=== PATIENT | female | born 1990 | race Caucasian/White ===

== ENCOUNTER → 2025-06-21 12:04 | Outpatient (BNVA) | payer OTHER, SELFPAY | PROVIDERS: Visit Provider Physician Assistant Medical | DX: S62.645A Nondisplaced fracture of proximal phalanx of left ring finger, initial encounter for closed fracture (principal); W01.0XXA Fall on same level from slipping, tripping and stumbling without subsequent striking against object, initial encounter | CPT/HCPCS: 73130; 99203 ==

== ENCOUNTER 2025-06-23 08:32 | Outpatient (REF) | payer OTHER, SELFPAY ==
--- NOTE | ~2025-06-23 | XR_ITS ---
EXAMINATION: XR HAND 3 OR MORE VIEWS LEFT HISTORY: M79.642 - Pain in left hand COMPARISON: There is an is made with the prior examination dated 06/21/2025. FINDINGS: Four views of the left hand are submitted. Osseous mineralization is normal. Again seen is a nondisplaced transverse fracture of the base of the 4th proximal phalanx. The joint spaces are preserved. The soft tissues are unremarkable. XR/XR hand LT min 3V IMPRESSION: Nondisplaced fracture of the base of the 4th proximal phalanx without change. Electronically signed by: Con Horn MD 06/23/2025 10:42 AM ERASMO
--- OUTSIDE RECORDS SUMMARY | 2025-06-26 08:49 | XMS_ITS | Clinical Summary ---
Author Organization [facility] Address [address] [place] [id number] Phone Care Team Providers Care Bus Driver Supervisor Name Role Phone Pcp, Not Required Primary [...] on file Insurance CIGNA PPO [facility] [facility] [place] [id number] CIGNA PPO CIGNA PPO CIGNA PPO CIGNA PPO Advance Directives For more information, please contact: [phone] (9AM - 5PM D[place]a/[facility], Thursday-Thursday) * Full Code (Latest Code Status on File) Date Activated Date Inactivated Comments 05/31/2023 4:22 PM Question Answer Comments Code Status Confirmed With: Other (specify below ) Code Discussion Comments: chart review Care Teams Bus Driver Supervisor Relationship Specialty Start Date End Date Pcp, Not Required PCP - General 10/23/16 Additional Source Comments The information contained in this document represents components of the legal health record. It is not the complete legal health record.[facility]
== END 2025-06-23 08:33 | disposition home or self-care (01) ==
LOC: HO.HOSX 08:32
DX: S62.615A Displaced fracture of proximal phalanx of left ring finger, initial encounter for closed fracture (principal); W01.0XXA Fall on same level from slipping, tripping and stumbling without subsequent striking against object, initial encounter; Y92.9 Unspecified place or not applicable; Y93.9 Activity, unspecified; Y99.9 Unspecified external cause status
CPT/HCPCS: 26720; 73130; 99202

== ENCOUNTER 2025-06-23 10:27 | Outpatient (AMB) | payer OTHER, SELFPAY ==
--- NOTE | 2025-06-23 10:57 | A.OFFVIS_ITS ---
Intake Visit Reasons: Fx- LT 4th proximal phalanx fracture DOI;06/21/25 Intake Note: Di is a 34 year old - hand dominant female, new patient, who presents today for a Fracture Care visit status post Left 4th Proximal Phalanx Fracture, DOI: 06/21/25 While at work she tripped and fell, while falling she tried catching herself but instead her Left hand hit the door/door know. Currently she reports very mild pain, some numbness,significant swelling and some bruising. The swelling is seen all along the left 4th digit as well as volar& dorsal aspects of hand. She is taking Ibuprofen PRN. After her injury she was seen at the work connection where she was placed in a splint. She has been at work with no clear restrictions from the . She works as a paraprofessional. Allergies No Known Allergies Allergy (Verified 06/23/25 11:06) HPI HPI Fx- LT 4th proximal phalanx fracture DOI;06/21/25: Details: Di is a 34 year old - hand dominant female, new patient, who presents today for a Fracture Care visit status post Left 4th Proximal Phalanx Fracture, DOI: 06/21/25 While at work she tripped and fell, while falling she tried catching herself but instead her Left hand hit the door/door know. Currently she reports very mild pain, some numbness,significant swelling and some bruising. The swelling is seen all along the left 4th digit as well as volar& dorsal aspects of hand. She is taking Ibuprofen PRN. After her injury she was seen at the work connection where she was placed in a splint. She has been at work with no clear restrictions from the . She works as a paraprofessional. [facility]LY [facility], [facility] Social History (Updated 06/23/25 @ 11:06 by Macy Holman CMA) Current occupational status: employed Current occupation: Paraprofessional Review of Systems Const All systems reviewed & are unremarkable except as noted in HPI and below Physical Exam Extrem Other: Patient is alert, oriented, and in no acute distress. Neuro: Normal sensation of the tips of all digits of the left hand at this time Vascular: Cap refill brisk Pain: Tenderness to palpation about proximal phalanx of left ring finger Skin: No lacerations or abrasions. General: There is noted to be a slight rotational deformity noted of the left ring finger No ecchymosis, erythema, or evidence of infection. Psych: Appears grossly normal Affect normal Attitude cooperative Office Procedures Casting/Splints 05032-Hdwwrzd Splint Application Procedure code (CPT) selection complete Results Reviewed Results Reviewed: X-rays obtained in the office today and independently reviewed by me, Carlos Hooks PA-C, demonstrate displaced left 4th proximal phalanx base fracture. Assessment & Plan Assessment & Plan (1) Displaced fracture of proximal phalanx of left ring finger: Code(s): S62.615A - Displaced fracture of proximal phalanx of left ring finger, initial encounter for closed fracture Category: Medical Plan 1. Left ring finger proximal phalanx fracture Date of injury 06/21/2025 I educated the patient about the condition. I discussed both operative and nonoperative treatment options. The patient would like to proceed with surgery. The risks and benefits of operative treatment were discussed with the patient and the patient wishes to proceed with surgery. These risks include, but are not limited to, risk of damage to blood vessels, nerves, tendons, infection, recurrence, incomplete relief of preoperative symptoms, persistent pain, possible need for further surgery, and the risks associated with regional blocks and/or anesthesia. Plan is to take the patient to the operating room at some point in the next few weeks for the following procedures: 1. Left ring finger proximal phalanx CRPP versus ORIF under general All of the preoperative paperwork including the consent was discussed today. All of the patient's questions were answered in the clinic today. The patient understands that they will be in contact with our parts puller to discuss scheduling their procedure. Patient denies diabetes, blood thinners, asthma, heart issues, lung issues, kidney issues, or current smoking. Patient is placed in a ulnar gutter splint today Patient educated on proper splint care and precautions Orders: Orders XR hand LT min 3V Today M79.642 - Pain in left hand Coding Level of Care Code New Pt Level 4 (45337) Diagnoses Displaced fracture of proximal phalanx of left ring finger S62.615A CPT Codes Splint - CPT: 94282-Cxglxvb Splint Application ([id number])
--- OUTSIDE RECORDS SUMMARY | 2025-06-23 11:59 | XMS_ITS | Clinical Summary ---
Author Organization [facility] Address [address] [place] [id number] Phone Care Team Providers Care Stock Checkerer Name Role Phone Pcp, Not Required Primary Care Provider Unavaila ble Allergies No known active allergies Medications * This document contains information received from the source organization and may not represent a complete record from that organization. citalopram (CELEXA) 20 MG tablet Take 1 tablet (20 mg total) by mouth daily. 60 tablet 06/03/2023 Active hydrOXYzine (ATARAX) 50 MG tablet Take 1 tablet (50 mg total) by mouth 2 (two) times a day as needed for anxiety (insomnia). 60 tablet 06/03/2023 Active Active Problems Problem Noted Date Diagnosed Date Major depressive disorder, recurrent 05/31/2023 Depression with anxiety 05/31/2023 Assessment & Plan (05/31/2023 8:36 PM EST): Had been on Celexa, but she was unable to get this refilled due to PCP issues. Has been restarted yesterday. Phobia 05/31/2023 Assessment & Plan (05/31/2023 8:36 PM EST): After choking on a bagel recently she is having irrational fears that she is going to choke and . She realizes this is a rational. Management is per the primary team. Immunizations Immunization Administration Dates Next Due Influenza Quadrivalent Preservative Free IM 05/07 Social History Tobacco Use Types Packs/Day Years Used Date Smoking Tobacco: Never Passive Smoke Exposure: Never Smokeless Tobacco: Never Tobacco Cessation:Counseling Given: No Alcohol Use Standard Drinks/Week Comments Yes 0 (1 standard drink = 0.6 oz pur e alcohol) social Education Answer Date Recorded Are you interested in more education? Not on beatris e 05/31/2023 Are you concerned about learning? Not on file 05/31/2023 No 05/31/2023 No 05/31/2023 Digital Access Answer Date Recorded No 05/31/2023 No 05/31/2023 Reliable internet access at home? Not on file 05/31/2023 Device with a working camera? Not on file Intimate Partner Violence Answer Date R ecorded Are you denied basic needs s uch as food, clothing, or medical care? No 05/31/2023 In the past 12 months have y ou been in a relationship with a person who hurts, threatens, or tries to control you? No 05/31/2023 Are you denied basic needs s uch as food, clothing, or medical care? No 05/31/2023 In the past 12 months have y ou been in a relationship with a person who hurts, threatens, or tries to control you? No 05/31/2023 Comments Unknown Sex and Gender Information Value Date Recorded Sex Assigned at Female 05/31/2023 5:51 PM EST Legal Sex Male 10:54 PM EDT Gender Identity Female 05/31/2023 5:51 PM EST Sexual Orientation Not on file Last Filed Vital Signs Vital Sign Reading Time Taken Comments Blood Pressure 121/75 06/03/2023 8:11 AM EST Pulse 74 06/03/2023 8:11 AM EST Temperature 37.1 C (98.7 F) 06/03/2023 8:11 AM EST Respiratory Rate 18 06/03/2023 8:11 AM EST Oxygen Saturation 96% 06/03/2023 8:11 AM EST Inhaled Oxygen Concentration - - Weight 60.4 kg (133 lb 3.2 oz) 05/31/2023 4:00 P M EST Height 165.1 cm (5' 5 ) 05/31/2023 4:00 PM EST Body Mass Index 22.17 05/31/2023 4:00 PM EST Plan of Treatment Health Maintenance Due Date Last Done Comments LIPID PANEL 1989 DEPRESSION SCREENING 2001 HEPATITIS C SCREENING 2007 HIV ONE-TIME SCREENING (18-65 YEARS) 2007 INFLUENZA VACCINE (#1) 2025 06/03/2023, 2021 COVID-19 VACCINE (2024- season) 2025 06/05/2022, 07/26/2021, 02/22/2021, Additional history exists Adult Td,Tdap Booster 12/12/2030 12/12/2020 SMOKING STATUS SCREENING (Once After 26 Yrs) Completed 05/31/2023 HEPATITIS A VACCINES Aged Out No long er eligible based on patient's age to complete this topic HIB VACCINES Aged Out No longer eligi ble based on patient's age to complete this topic MENINGOCOCCAL VACCINES (ACWY) Aged Out No longer eligible based on patient's age to complete this topic MENINGOCOCCAL VACCINES (B) Aged Out N o longer eligible based on patient's age to complete this topic PNEUMOCOCCAL VACCINES (0-49 years) Aged Out No longer eligible based on patient's age to complete this topic Medical Devices Not on file Insurance CIGNA PPO [place] [id number] CIGNA PPO CIGNA PPO CIGNA PPO CIGNA PPO Advance Directives For more information, please contact: [phone] (9AM - 5PM Donna/[facility], Thursday-Thursday) * Full Code (Latest Code Status on File) Date Activated Date Inactivated Comments 05/31/2023 4:22 PM Question Answer Comments Code Status Confirmed With: Other (specify below ) Code Discussion Comments: chart review Care Teams Stock Checkerer Relationship Specialty Start Date End Date Pcp, Not Required PCP - General 10/23/16 Additional Source Comments The information contained in this document represents components of the legal health record. It is not the complete legal health record.[facility]
== END 2025-06-23 11:57 | disposition home or self-care (01) ==
LOC: HO.HOS 10:27
DX: S62.615A Displaced fracture of proximal phalanx of left ring finger, initial encounter for closed fracture (principal)
CPT/HCPCS: 26720; 99204

== ENCOUNTER → 2025-06-23 10:30 | Outpatient (BNV) | payer OTHER, SELFPAY | PROVIDERS: Visit Provider Radiology Diagnostic Radiology | DX: S62.647A Nondisplaced fracture of proximal phalanx of left little finger, initial encounter for closed fracture (principal) | CPT/HCPCS: 73130 ==

== ENCOUNTER 2025-07-03 05:55 | Day surgery (SDC) | payer OTHER, SELFPAY ==
--- OUTSIDE RECORDS SUMMARY | 2025-06-30 09:24 | XMS_ITS | Clinical Summary ---
Author Organization [facility] Address [address] [place] [id number] Phone Care Team Providers Care Nicker Name Role Phone Pcp, Not Required Primary [...] on file Insurance CIGNA PPO [place] [facility] [place] [id number] CIGNA PPO CIGNA PPO CIGNA PPO CIGNA PPO Advance Directives For more information, please contact: [phone] (9AM - 5PM Donna/[facility], Thursday-Thursday) * Full Code (Latest Code Status on File) Date Activated Date Inactivated Comments 05/31/2023 4:22 PM Question Answer Comments Code Status Confirmed With: Other (specify below ) Code Discussion Comments: chart review Care Teams Nicker Relationship Specialty Start Date End Date Pcp, Not Required PCP - General 10/23/16 Additional Source Comments The information contained in this document represents components of the legal health record. It is not the complete legal health record.[facility]
--- NOTE | 2025-06-30 10:36 | HO.ANESPROP2 ---
Documented by User: Claribel Pulido NP 06/30/25 10:36 HPI - Anesthesia Eval Consult details Narrative: 35 yr old female for left 4th Proximal Phalanx Fx CRPP vs ORIF PMFSH Active Problems Active Problems: All Active Problems (Updated 06/23/25 @ 15:36 by CRISTIANE Elliott) Displaced fracture of proximal phalanx of left ring finger (Acute) Surgical History Surgical History Hx of wisdom tooth extraction Social History Social History Are you a primary patient care associate to a significant other at home: No Do you presently have visiting nurse or other home services: No Patient Tobacco Use Status: Never used Tobacco Second Hand Smoke Exposure: No Use of substances other than those prescribed or required for medical reasons: Yes Substance Use Frequency: Daily Have you been hit, kicked, punched, or otherwise hurt by someone within the past year? If so, by whom?: No Are you DNR?: No Advance Directives: No Advance Directives Information Provided: Yes Advance Directives on File: No Patient : No : No Current occupational status: employed Current occupation: Paraprofessional Meds Allergies Allergy/AdvReac Type Severity Reaction Status Date / Time No Known Allergies Allergy Verified 06/23/25 11:06 Home Medications ?Medication ?Instructions ?Recorded ?Confirmed ?Last Taken ?Type citalopram 10 mg tablet 10 mg PO DAILY 06/23/25 07/03/25 Unknown History lamotrigine 150 mg tablet 150 mg PO DAILY 06/23/25 07/03/25 Unknown History Documented by User: Radha Salmon MD 07/03/25 08:02 PMFSH Family History Family history of problems with anesthesia: No Surgical History Surgical History Hx of wisdom tooth extraction History of Problems with Anesthesia: No Social History Social History Are you a primary patient care associate to a significant other at home: No Do you presently have visiting nurse or other home services: No Patient Tobacco Use Status: Never used Tobacco Second Hand Smoke Exposure: No Use of substances other than those prescribed or required for medical reasons: Yes Substance Use Frequency: Daily Have you been hit, kicked, punched, or otherwise hurt by someone within the past year? If so, by whom?: No Are you DNR?: No Advance Directives: No Advance Directives Information Provided: Yes Advance Directives on File: No Patient : No : No Current occupational status: employed Current occupation: Paraprofessional Meds Allergies Allergy/AdvReac Type Severity Reaction Status Date / Time No Known Allergies Allergy Verified 06/23/25 11:06 Home Medications ?Medication ?Instructions ?Recorded ?Confirmed ?Last Taken ?Type citalopram 10 mg tablet 10 mg PO DAILY 06/23/25 07/03/25 Unknown History lamotrigine 150 mg tablet 150 mg PO DAILY 06/23/25 07/03/25 Unknown History Exam Airway Mallampati Class: II TM Dist: >3cm Neck ROM: Full Heart: rrr Lungs: cta Assessment and Plan Assessment Anesthesia Assessment: Anesthesia Plan Discussed and Chart Reviewed Final Anesthetic Review Family History of Problems with Anesthesia: No History of Problems with Anesthesia: No NPO: Yes ASA Class: II Final Preanesthetic Review: No Changes in Pt Med Stat, Meds/Allgs Chart Reviewed, Consent Obtained/Reviewed and Anes Risks/Benef Reviewed Patient Risk: Low Procedure Risk: Low Anesthetic Plan Anesthetic Plan: GA and Agree w/ Assess. and Plan Disposition: Standard PACU
[2025-07-03] VITALS (9 sets, daily range): BP systolic 99–142; BP diastolic 59–76; PULSE 76–107; RESP 14–16; TEMP 36.1–36.6; O2SAT 97–100; BMI 31.2
--- NOTE | ~2025-07-03 | FL_ITS ---
EXAMINATION: FL GUIDANCE ONLY HISTORY: ORIF left proximal phalanx COMPARISON: Comparison is made with the prior examination of the left hand dated 06/23/2025. TECHNIQUE: Fluoroscopy time: 47.56 seconds. Cumulative Dose: 1.2452 mGy. DAP: 0.0753 Gycm2 Images: 3. FINDINGS: Fluoroscopic spot films of the left hand demonstrate internal fixation of the previously noted fracture at the base of the 4th metacarpal with a wire. FL/FL guidance in OR IMPRESSION: Fluoroscopy during procedure. Please see procedure report for additional information. Electronically signed by: Con Horn MD 07/03/2025 10:50 AM ERASMO
[2025-07-03 06:23] LABS: UPreg QC Valid YES
[2025-07-03] MEDS: Lactated Ringers 1,000 ML 100 ML IVCONT (06:35)
--- NOTE | 2025-07-03 07:28 | MHC.SHP ---
Pre-Procedural Eval Section A - 24 Hr Update-Section A only Date of Service: 07/03/25 The patient is an INPATIENT: No Changes since office visit: No Cold of Flu in the past 2 weeks, No New Medical Problems, No Changes in Medication and No Patient answered all questions The patient has been examined within 24 hours of the surgical procedure. The History & Physical has been completed within 30 days and I have reviewed it.: Yes Section B - Complete if H&P > 30 days Chief Complaint: Displaced fracture of proximal phalanx of left rin Allergies: Allergies Allergy/AdvReac Type Severity Reaction Status Date / Time No Known Allergies Allergy Verified 06/23/25 11:06 Plan I have reviewed the history and physical and performed a pertinent physical examination on my patient. No changes have occurred unless specified. Time Spent With Patient Time: Total time managing care of this patient today ____ minutes.
--- NOTE | 2025-07-03 07:29 | W.PM.OPN ---
Operative Note Operative Note Date of Service: 07/03/25 Narrative: Operative Note Narrative: Preop diagnosis: 1. Left ring finger proximal phalanx fracture Postop diagnosis: Same Procedure: 1. Left ring finger proximal phalanx fracture CRPP 2. Ulnar nerve block Surgeon: Xenia Gomes MD Airplane Gas Tank Liner Assembler: None Anesthesia: General Anesthesia Findings: finger fracture Implants: 0.045 K-wires times 1 Tourniquet time: None EBL: Minimal Specimen: None Drains: None Complications: None Disposition: Brought to the recovery room in stable condition Plan: Follow-up in 10-14 days for a wound check, postop radiographs and for placement in a short-arm finger spica cast or splint Anticipate K-wire removal in 4 weeks based on interval bony healing Educate the patient that full fracture healing anticipated in approximately 8-12 weeks. Indications: The patient is 35 years old with left ring finger proximal phalanx base fracture . The risks and benefits of operative treatment, including but not limited to risk of damage to blood vessels, nerves, tendons, infection, recurrence, delayed or nonunion of fracture, persistent pain or numbness, incomplete resolution of preoperative symptoms, or need for further surgery were discussed with the patient and they wished to proceed with surgery. Procedure: Once consent was obtained patient was brought back to the operating suite and placed in the operating table in a supine position. . Perioperative antibiotics and general anesthesia was administered by the anesthesia team. A tourniquet was applied to the proximal aspect of the left upper extremity and the limb was prepped and draped in a standard surgical fashion. Tourniquet was not inflated during the case. The FluoroScan was used during the case to assist with our fracture reduction and placement of all implants. The patient's left ring finger was noted to be ulnarly deviated at the base of the finger. A closed reduction was performed on the patient's left ring finger proximal phalanx fracture. A 0.045 K-wire was placed through the ulnar base of the proximal phalanx. This was advanced across the fracture site and into the shaft. One K-wire was felt to be sufficient. Fracture alignment was assessed for both angular and rotational malalignment. Once satisfied with our fracture reduction and implant placement, the K-wires were bent and cut short and pin caps applied. Final fluoroscopic images were then obtained. The wounds were copiously irrigated with normal saline. I infiltrated about the pin site in the base of the middle finger with some 1% lidocaine with epinephrine for postop pain control. A Sterile dressing and short volar splint extending to the forearm was applied. The patient appears to have tolerated the procedure well and with no complications. All digits were well vascularized at the conclusion of the case.
== END 2025-07-03 09:32 | disposition home or self-care (01) ==
PROVIDERS: Nurse Practitioner; Visit Provider Orthopaedic Surgery
PROC: (CPT 26727; principal; 2025-07-03 07:30)
DX: S62.615A Displaced fracture of proximal phalanx of left ring finger, initial encounter for closed fracture (principal); M79.645 Pain in left finger(s); M79.642 Pain in left hand; R20.0 Anesthesia of skin; W18.09XA Striking against other object with subsequent fall, initial encounter; Y93.01 Activity, walking, marching and hiking; Y92.9 Unspecified place or not applicable; Y99.0 Civilian activity done for income or pay
CPT/HCPCS: 26727; 81025; J0131; J0690; J1100; J2003; J2004; J2405; J2704; J3010

== ENCOUNTER → 2025-07-03 05:55 | Outpatient (BNV) | payer OTHER, SELFPAY | PROVIDERS: Visit Provider Orthopaedic Surgery | DX: S62.615A Displaced fracture of proximal phalanx of left ring finger, initial encounter for closed fracture (principal) | CPT/HCPCS: 26727 ==